=== PATIENT | female | born 1965 | race Two or more races ===

== ENCOUNTER 2022-05-11 22:22 | Emergency (ER) | payer OTHER ==
[~2022-05-11] VITALS: Ht 160 cm; Wt 56.7 kg
--- NOTE | 2022-05-12 00:12 | NUR ---
TO ER BED 4. BIBS.C/O BURNING UPON URINATION X 2 WEEKS. PT IS ALERT AND ORIENTED. RR EVEN AND NON LABORED. CONNECTED TO MONITOR. AWAITING MD SOTELO
[2022-05-12 01:26] LABS: BILIRUBIN,URINE NEGATIVE (NEGATIVE); COLOR,URINE OTHER (YELLOW); LEUKOCYTE ESTERASE ,URINE 3+ (NEGATIVE); NITRITE, URINE NEGATIVE (NEGATIVE); PROTEIN,URINE NEGATIVE (NEGATIVE); UGLUCOSE NEGATIVE (NEGATIVE); UROBILINOGEN,URINE 0.2 EU/dL (0.2)
[2022-05-12] MEDS ORDERED: NITR100C6 PO (01:55)
--- NOTE | 2022-05-12 02:01 | NUR ---
Patient discharged to home in stable condition. Written and verbal after care instructions given. Patient verbalizes understanding of instruction.
[2022-05-12 02:02] VITALS: BP 121/87
[2022-05-12 02:29] LABS: BACTERIA,URINE Rare /HPF (None Seen); SQUAMOUS EPITHELIAL CELL,UR Few /HPF (None Seen); WBC,URINE 21-50 /HPF (0-3)
== END 2022-05-12 02:02 | disposition home or self-care (01) ==
LOC: ER 22:26
DX: N39.0 Urinary tract infection, site not specified (principal); Z60.2 Problems related to living alone; Z79.899 Other long term (current) drug therapy
CPT/HCPCS: 81001; 87086-TC

== ENCOUNTER 2022-05-16 03:10 | Emergency (ER) | payer OTHER ==
[~2022-05-16] VITALS: Ht 154.9 cm; Wt 56.7 kg
[~2022-05-16 03:10] MED LIST: NITR100C6 PO
[2022-05-16 03:27] VITALS: BP 153/101
--- NOTE | 2022-05-16 03:41 | NUR ---
URINE SAMPLE COLLECTED
[2022-05-16] MEDS ORDERED: FLUC200T PO (03:48)
== END 2022-05-16 04:06 | disposition home or self-care (01) ==
LOC: ER 03:13
DX: B37.31 Acute candidiasis of vulva and vagina (principal); Z11.3 Encounter for screening for infections with a predominantly sexual mode of transmission; Z60.2 Problems related to living alone; Z79.899 Other long term (current) drug therapy
CPT/HCPCS: 87491; 87591